=== PATIENT | male | born 1950 | race Caucasian/White ===

== ENCOUNTER 2019-10-14 22:42 | Emergency (ER) | payer OTHER, MEDICARE ==
[2019-10-14] MEDS ORDERED: HYDROMORPHONE HCL INJ/PF 2 MG/ML AMPULE IV ONE (23:00)
[2019-10-14] MEDS ORDERED: NORMAL SALINE 1000 ML 1,000 ML IV ONE (23:00)
[2019-10-14] MEDS ORDERED: ONDANSETRON HCL INJ/PF 4 MG/2 ML SDV IV ONE (23:01)
--- NOTE | 2019-10-14 23:01 | ER Document Report ---
ED GI/ - General Stated Complaint: ABDOMINAL PAIN Time Seen by Provider: 10/14/19 22:55 Primary Care Provider: DIDI BLANCA MD [NO LOCAL MD] - Follow up as needed Mode of Arrival: Medic Information source: Patient Notes: 69-year-old man presents to the emergency department with severe lower abdominal pain which she states began approximately 5 hours prior to arrival. States he was sitting on a couch when he instantaneously developed a severe lower abdominal pain. EMS was called and he was transported to the emergency department in severe/pain. He was given 100 mcg of fentanyl, and states the pain has not been affected and he is still screaming secondary to the discomfort. Denies prior history of similar episodes. He has a history of atrial fibrillation, uses aspirin, smokes marijuana and takes no other medications. - Related Data Allergies/Adverse Reactions: No Known Allergies Allergy (Unverified 10/14/19 23:30) Past Medical History - Social History Smoking Status: Unknown if Ever Smoked Family History: Reviewed & Not Pertinent Review of Systems - Review of Systems Notes: Constitutional: Negative for fever. HENT: Negative for sore throat. Eyes: Negative for visual changes. Cardiovascular: Negative for chest pain. Respiratory: Negative for shortness of breath. Gastrointestinal: + Abdominal pain, no vomiting or diarrhea. Genitourinary: Negative for dysuria. Musculoskeletal: Negative for back pain. Skin: Negative for rash. Neurological: Negative for headaches, weakness or numbness. 10 point ROS negative except as marked above and in HPI. Physical Exam - Vital signs Vitals: Temp 98.3 F 10/14/19 23:00 - Notes Notes: PHYSICAL EXAMINATION: Physical Exam: General: Well-nourished well-developed in no acute distress HEENT: NC/AT, pupils equal round and reactive to light, MM moist,nares clear, oropharynx clear, airway patent Neck: supple, no adenopathy, no masses. Good range of motion Lungs: clear, no wheezing, no rales no rhonchi CVS: Regular rate and rhythm no murmur gallop or rub Abdomen: Soft, active, + lower abdominal pain with guarding, left lower quadrant greater than right. Good bowel sounds, no masses, no masses, no hepatosplenomegaly Ext: No edema, clubbing or cyanosis. Neuro: Alert and responsive, moving all 4 extremities on command, cranial nerves intact, no focal findings Skin: Intact no open lesions, no rash PSYCH: Normal mood, normal affect. Course - Re-evaluation Re-evalutation: 10/15/19 05:06 I reviewed the patient CT scan reveals a markedly distended bladder, Guevara catheter was placed approximately 1000 cc of fluid drained. Patient symptoms appear to be related to urinary obstruction, incidental finding of a abdominal aneurysm approximately 4 cm extending from below the infrarenal down to the bifurcation. Patient notes that he was aware of a aneurysm and has not had follow-up recently. 10/15/19 05:46 Vascular surgery at [facility] was contacted Dr. Stoner, after review of the images and discussion it is felt that the patient can follow-up in the clinic as an outpatient. He notes that if he calls for an appointment tomorrow he can be scheduled to be seen on Sunday of next week. I will shared this information with the patient and encouraged him to schedule follow-up for his 4 cm abdominal aortic aneurysm and question of a occlusion/stenosis in the left common iliac artery. - Vital Signs Vital signs: Temp Pulse Resp BP Pulse Ox 98.1 F 88 18 154/72 H 97 10/15/19 03:30 10/15/19 03:30 10/15/19 03:30 10/15/19 03:30 10/15/19 03:30 - Laboratory Result Diagrams: 10/14/19 22:50 10/14/19 22:50 Laboratory results interpreted by me: 10/14/19 10/14/19 10/15/19 22:50 22:50 00:50 WBC 15.9 H RDW 14.4 H Lymph % (Auto) 11.5 L Absolute Neuts (auto) 12.8 H Seg Neutrophils % 81.0 H Glucose 154 H Total Protein 8.6 H Urine Ketones TRACE H I have reviewed laboratory data and used this information for the treatment decisions regarding the patient. - Diagnostic Test Radiology reviewed: Image reviewed, Reports reviewed - CT of the abdomen and pelvis with IV contrast: 4 cm abdominal aortic aneurysm, occlusion versus high- grade stenosis of the left common iliac artery, distended bladder with approximately 1100 cc of fluid and no obstruction seen. Discharge - Discharge Clinical Impression: Urinary obstruction, Abdominal aortic aneurysm (AAA) >39 mm diameter Condition: Good Disposition: HOME, SELF-CARE Additional Instructions: You were diagnosed with urinary obstruction in the emergency department today, keep the Guevara catheter in place until he can follow-up with the urologist. You also found to have a 4 cm abdominal aortic aneurysm. I have spoken to the vascular surgeon at [facility] in [facility]. You can make an appointment with Dr. Sabino Stoner, [phone], location [id number] [place], [place]. Please call for an appointment tomorrow and they can see you in the office early next week. We will also need to follow-up with a urologist regarding your urinary obstruction and Guevara catheter placement. A referral will be provided with the discharge paperwork. HOME CARE INSTRUCTIONS & INFORMATION: Thank you for choosing us for your medical needs. We hope you're satisfied with the care you received. After you leave, you must properly care for your problem and, at the same time, observe its progress. Any condition can change. Some illnesses can change rapidly over hours or days. If your condition worsens, return to the Emergency Department or see your physician promptly. ABOUT YOUR X-RAYS AND EKG'S: If you had an EKG or X-rays taken, they have been read by the Emergency Physician. The X-rays and EKG's will also be read by a Radiologist or Team Assembler within 24 hours. If discrepancies are noted, you will be notified by telephone. Please be certain the ED has a correct telephone number & address where you can be reached. Also, realize that some fractures or abnormalities do not show up on initial X-rays. If your symptoms continue, see your physician. ABOUT YOUR LABORATORY TEST: If you had laboratory tests, the results have been reviewed by the Emergency Physician. Some test results (for example cultures) may not be available for several days. You will be contacted if any test result shows you need additional treatment. Please be certain the ED has a correct telephone number and address where you can be reached. ABOUT YOUR MEDICATIONS: You will receive instructions on how to take your medicine on the prescription label you receive. Additional information may be provided by the Pharmacy. If you have questions afterwards, call the ED for clarification or further instructions. Some prescribed medications may cause drowsiness. Do not perform tasks such as driving a car or operating machinery w ithout consulting your Pharmacist. If you feel you need a refill of pain medication, your condition will need re-evaluation. Please do not call for a refill of any medication. ABOUT YOUR SIGNATURE: Signature of this document acknowledges to followin. Understanding that you received emergency treatment and that you may be released before al medical problems are known or treated. Please be certain the ED has a correct phone number & address where you can be reached. 2. Acknowledgement that you will arrange for follow-up care as recommended. 3. Authorization for the Emergency Physician to provide information to your follow-up Physician in order to maximize your care. AT ANY TIME, IF YOUR SYMPTOMS CHANGE SIGNIFICANTLY OR WORSEN OR YOU DEVELOP NEW SYMPTOMS, RETURN TO THE EMERGENCY DEPARTMENT IMMEDIATELY FOR RE-EVALUATION. OUR GOAL IS TO PROVIDE EXCELLENT MEDICAL CARE! WE HOPE THAT WE HAVE MET YOUR EXPECTATIONS DURING YOUR EMERGENCY DEPARTMENT VISIT AND THAT YOU FEEL YOU HAVE RECEIVED EXCELLENT CARE! Referrals: DIDI BLANCA MD [NO LOCAL MD] - Follow up as needed
[2019-10-14 23:08] LABS: ABSOLUTE BASOPHILS # (AUTO) 0.1 10^3/uL (0.0-0.2); ABSOLUTE EOSINOPHILS # (AUTO) 0.1 10^3/uL (0.0-0.6); ABSOLUTE LYMPHOCYTES (AUTO) 1.8 10^3/uL (0.5-4.7); ABSOLUTE MONOCYTES (AUTO) 0.9 10^3/uL (0.1-1.4); ABSOLUTE NEUT (AUTO) 12.8 10^3/uL (1.7-8.2); BASOPHILS % (AUTO) 0.9 % (0-2); EOSINOPHILS % (AUTO) 0.7 % (0-6); HEMATOCRIT 46.8 % (37.9-51.0); HEMOGLOBIN 16.6 g/dL (13.5-17.0); LYMPHOCYTES % (AUTO) 11.5 % (13-45); MEAN CORPUSCULAR HGB CONC 35.4 g/dL (32.0-36.0); MEAN CORPUSCULAR VOLUME 87 fl (80-97); MONOCYTES % (AUTO) 5.9 % (3-13); PLATELET COUNT 263 10^3/uL (150-450); RED BLOOD COUNT 5.35 10^6/uL (4.35-5.55); RED CELL DISTRIBUTION WIDTH 14.4 % (11.5-14.0); TOTAL CELLS COUNTED % (AUTO) 100 %; WHITE BLOOD COUNT 15.9 10^3/uL (4.0-10.5)
[2019-10-14 23:23] LABS: ALBUMIN 4.7 g/dL (3.5-5.0); ALKALINE PHOSPHATASE 47 U/L (38-126); ANION GAP 13 (5-19); ASPARTATE AMINO TRANSFERASE 29 U/L (17-59); BILIRUBIN,DIRECT 0.4 mg/dL (0.0-0.4); BILIRUBIN,TOTAL 0.6 mg/dL (0.2-1.3); BLOOD UREA NITROGEN 18 mg/dL (7-20); CARBON DIOXIDE 22 mmol/L (22-30); CHLORIDE 102 mmol/L (98-107); GLUCOSE 154 mg/dL (75-110); POTASSIUM 4.3 mmol/L (3.6-5.0); TOTAL PROTEIN 8.6 g/dL (6.3-8.2)
[2019-10-15] MEDS ORDERED: HYDROMORPHONE HCL INJ/PF 2 MG/ML AMPULE IV ONE (00:26)
[2019-10-15] MEDS ORDERED: LORAZEPAM INJ 2 MG/1 ML VIAL IV ONE (00:26)
[2019-10-15] MEDS ORDERED: ONDANSETRON HCL INJ/PF 4 MG/2 ML SDV IV ONE (00:29)
[2019-10-15] MEDS ORDERED: KETOROLAC TROMETHAMINE INJ/PF 30 MG/1 ML SDV IV ONE (00:30)
[2019-10-15 01:40] LABS: APPEARANCE,URINE CLEAR; BILIRUBIN,URINE NEGATIVE (NEGATIVE); COLOR,URINE STRAW; GLUCOSE, URINE NEGATIVE (NEGATIVE); KETONES,URINE TRACE mg/dL (NEGATIVE); LEUKOCYTE ESTERASE,URINE NEGATIVE (NEGATIVE); NITRITE,URINE NEGATIVE (NEGATIVE); PROTEIN,URINE NEGATIVE (NEGATIVE); UROBILINOGEN,URINE NEGATIVE mg/dL (<2.0)
[2019-10-15 01:43] LABS: ADD MANUAL MICROSCOPIC YES
[2019-10-15 01:45] LABS: HYALINE CASTS, URINE RARE /LPF; RBC,URINE RARE /HPF
--- NOTE | 2019-10-15 01:59 | RADIOLOGY REPORT (SQ) ---
EXAM DESCRIPTION: [facility]: CT ABDOMEN PELVIS WITH IV CONTRAST CLINICAL HISTORY: 69 years Male; LLQ abdominal pain; TECHNIQUE: CT of the abdomen and pelvis using intravenous contrast. All CT scans at this facility use dose modulation, iterative reconstruction, and/or weight based dosing when appropriate to reduce radiation dose to as low as reasonably achievable. COMPARISON: None. FINDINGS: Abdomen: Liver:No focal lesions. No intrahepatic ductal distention. Gallbladder:Nondistended Pancreas:Within normal limits Spleen:Within normal limits Right kidney: Multiple small cysts. No hydronephrosis. Healed left several small cysts. No hydronephrosis. Left kidney:No hydronephrosis. No focal lesion. Adrenal glands:Within normal limits Vascular structures: An infrarenal abdominal aortic aneurysm with mural thrombus measures maximum 4 cm in diameter, beginning approximately 1 cm below the renal arteries and extending down to the aortic bifurcation. High-grade stenosis versus occlusion of the left common iliac artery. There is filling of the left external iliac artery and hypogastric. Pelvis: Small bowel:No significant distention. Appendix:Within normal limits Colon: Large amount of fecal material in the distal sigmoid and rectum. Moderate proximal colonic fecal retention, without proximal distention. No free intraperitoneal fluid or air. Bones: No acute bone findings. Bladder: Distended, at least 1100 mL. No surrounding edema. Prostate: 4.7 cm wide. IMPRESSION: 1. 4 cm abdominal aortic aneurysm. Recommend vascular consultation and annual follow-up. 2. Occlusion versus high-grade stenosis of the left common iliac artery 3. Distended bladder, at least 1100 mL. 4. No bowel obstruction or acute inflammatory changes.
[2019-10-15 06:47] VITALS: BP 152/92
== END 2019-10-15 07:00 | disposition home or self-care (01) ==
LOC: ER 22:42
DX: N13.9 Obstructive and reflux uropathy, unspecified (principal); I71.4 Abdominal aortic aneurysm, without rupture; R10.32 Left lower quadrant pain; Z79.82 Long term (current) use of aspirin
CPT/HCPCS: 96376; 99285; 96361; 51702; 96374; 96375; 36415; 83605; 83690; 85025; 80053; 81001; 74177; J1885; J1170 ×2; J2060; J2405 ×2; J7030

== ENCOUNTER 2019-10-16 06:09 | Emergency (ER) | payer OTHER, MEDICARE ==
[2019-10-16 06:17] VITALS: BP 150/90
--- NOTE | 2019-10-16 07:02 | ER Document Report ---
ED General - General Chief Complaint: Problem with Urinary Catheter Stated Complaint: BLOOD IN CATHETER Time Seen by Provider: 10/16/19 06:40 TRAVEL OUTSIDE OF THE [place] IN LAST 30 DAYS: No - HPI Notes: Chief complaint: Problem with Guevara catheter 69-year-old male sent here by Dr. Pearson 2 days ago with acute urinary retention and required placement of a Guevara catheter. He was also incidentally noted to have an aortic aneurysm which did not appear to be acutely leaking and questionable occlusion of iliac artery. He has been referred to a vascular surgeon and urologist. He comes back in today saying that Guevara catheter is causing him a lot of discomfort and he really wants this taken out if possible. He also notes he has had a tiny amount of bleeding at the urethral meatus staining his underwear and was concerned about this. He is not running a fever or having chills or vomiting. Interestingly he notes that he had a large number of bowel movements after he was discharged and thinks that he may have had a fecal impaction. He wonders if this could have been a contributing factor to his difficulty voiding. He again reiterates that the Guevara is very uncomfortable and he wants this taken out. He is not yet made a follow-up appointment with urology and says he has problems with transportation. - Related Data Allergies/Adverse Reactions: No Known Allergies Allergy (Unverified 10/14/19 23:30) Past Medical History - General Information source: Patient - Social History Smoking Status: Current Every Day Smoker Chew tobacco use (# tins/day): No Frequency of alcohol use: None Drug Abuse: Marijuana Family History: Reviewed & Not Pertinent Patient has suicidal ideation: No Patient has homicidal ideation: No - Past Medical History Cardiac Medical History: Reports: Hx Atrial Fibrillation, Hx Heart Attack Past Surgical History: Reports: Hx Cardiac Surgery - x6 stents Review of Systems - Review of Systems Notes: Constitutional: Negative for fever. HENT: Negative for sore throat. Eyes: Negative for visual changes. Cardiovascular: Negative for chest pain. Respiratory: Negative for shortness of breath. Gastrointestinal: Negative for abdominal pain, vomiting or diarrhea. Genitourinary: As per HPI. Musculoskeletal: Negative for back pain. Skin: Negative for rash. Neurological: Negative for headaches, weakness or numbness. 10 point ROS negative except as marked above and in HPI. Physical Exam - Vital signs Vitals: Temp Pulse Resp BP Pulse Ox 98.1 F 93 18 150/90 H 97 10/16/19 06:14 10/16/19 06:14 10/16/19 06:14 10/16/19 06:14 10/16/19 06:14 - Notes Notes: GENERAL: Well-developed well-nourished appearing restless and uncomfortable. SKIN: Good turgor no rashes. HEAD: Normocephalic atraumatic. EYES: PERRLA. EOMI. Conjunctivae and sclerae clear. EARS: CANALS AND TMS CLEAR. NOSE: CLEAR. MOUTH: Moist mucosa. Good dentition. No stridor or edema. No drooling. NECK: Supple. No masses or thyromegaly. No adenopathy. Carotids 2+ without bruits. No JVD. BACK: Symmetrical without tenderness. CHEST: Respirations unlabored. Breath sounds clear and symmetrical. HEART: Regular rhythm. No murmur gallop or rub. ABDOMEN: Soft nontender without masses, organomegaly or rebound. Bowel sounds normally active. No bruits. GENITALIA: Guevara catheter in situ. Urine in the bag appears grossly clear. He has a tiny amount of blood staining of his underwear which appears to come from around the urethral meatus.. EXTREMITIES: No edema. No calf tenderness. Cap refill less than 1.5 seconds. Dorsalis pedis and posterior tibial pulses 3+ and symmetrical. NEUROLOGICAL: GCS 15. Alert and oriented x3. Normal gait. Fluent speech. Cranial nerves II through XII intact. Sensorimotor and cerebellar normal. Normal tone. PSYCHIATRIC: Appropriate affect. Course - Re-evaluation Re-evalutation: 10/16/19 07:02 I will intact Guevara give this man a voiding trial. If he passes this we will try to help him make arrangements for outpatient urology referral. I am also going to check a urinalysis on the specimen from the tubing before we remove the catheter. 10/16/19 08:47 We took Mr. Joseph symptoms catheter out. I was preoccupied immediately thereafter caring for trauma patient. When I went back to reassess Mr. Stafford and he had eloped from the facility. I have asked charge nurse to call him on the telephone and strongly encouraged him to return here for any additional problems and to follow-up with urology as soon as possible. - Vital Signs Vital signs: Temp Pulse Resp BP Pulse Ox 98.1 F 93 18 150/90 H 97 10/16/19 06:14 10/16/19 06:14 10/16/19 06:14 10/16/19 06:14 10/16/19 06:14 - Laboratory Laboratory results interpreted by me: 10/16/19 07:04 Urine Blood LARGE H Leukocyte Esterase Rfl TRACE H Discharge - Discharge Clinical Impression: Symptom of bladder outlet obstruction Disposition: ELOPED
[2019-10-16 07:19] LABS: APPEARANCE,URINE CLEAR; BILIRUBIN,URINE NEGATIVE (NEGATIVE); COLOR,URINE YELLOW; GLUCOSE, URINE NEGATIVE (NEGATIVE); KETONES,URINE NEGATIVE (NEGATIVE); PROTEIN,URINE NEGATIVE (NEGATIVE); URINE SPECIFIC GRAVITY 1.006; UROBILINOGEN,URINE NEGATIVE mg/dL (<2.0)
[2019-10-16 07:31] LABS: BACTERIA,URINE TRACE /HPF
== END 2019-10-16 08:30 | disposition left against medical advice (07) ==
LOC: ER 06:09
DX: R39.198 Other difficulties with micturition (principal); F17.200 Nicotine dependence, unspecified, uncomplicated; F12.10 Cannabis abuse, uncomplicated; Z46.6 Encounter for fitting and adjustment of urinary device
CPT/HCPCS: 81001; 87086; 99281